=== PATIENT | male | born 1995 | race Caucasian/White ===

== ENCOUNTER 2016-04-01 16:39 | Emergency (ER) | payer SELFPAY | END 2016-04-01 17:26 | disposition left against medical advice (07) | LOC: UCCORT 16:39 | DX: J11.1 Influenza due to unidentified influenza virus with other respiratory manifestations (principal); Z53.21 Procedure and treatment not carried out due to patient leaving prior to being seen by health care provider ==

== ENCOUNTER 2016-04-02 16:58 | Emergency (ER) | payer SELFPAY | END 2016-04-02 18:26 | disposition left against medical advice (07) | LOC: UCCORT 16:58 | DX: R50.9 Fever, unspecified (principal); J02.9 Acute pharyngitis, unspecified; R05 Cough; Z53.21 Procedure and treatment not carried out due to patient leaving prior to being seen by health care provider ==

== ENCOUNTER 2016-07-05 12:19 | Emergency (ER) | payer OTHER ==
[2016-07-05 13:19] VITALS: BP 143/90
--- NOTE | 2016-07-05 14:34 | UC ---
Throat Pain/Nasal Max HPI - HPI Summary HPI Summary: FIVE DAYS OF YELLOW PRODUCTIVE COUGH NASAL CONGESTION SORE THROAT, NO FEVER. - History of Current Complaint Chief Complaint: UCRespiratory Stated Complaint: CHEST COLD Time Seen by Provider: 07/05/16 14:06 Hx Obtained From: Patient, Family/[employer] Onset/Duration: Gradual Onset, Lasting Days, Still Present Severity: Moderate Pain Intensity: 10 Pain Scale Used: 0-10 Numeric Cough: Productive Associated Signs & Symptoms: Positive: Hoarseness, Sinus Discomfort, Nasal Discharge - Epiglottits Risk Factors Epiglottis Risk Factors: Negative - Allergies/Home Medications Allergies/Adverse Reactions: Allergies Allergy/AdvReac Type Severity Reaction Status Date / Time bee stings Allergy Swelling Uncoded 07/05/16 13:14 Of Face,Lips,& Throat Home Medications: Home Medications Ibuprofen TAB* [Advil TAB*] 400 mg PO Q6H PRN 07/05/16 [History Confirmed ] Vtmucajurmhoi-[id number] [[place] Plus Day/Nig] 1 cy PO BID PRN [History Confirmed 07/05/16] guaiFENesin ER TAB [Mucinex*] 600 mg PO BID PRN 07/05/16 [History Confirmed ] PMH/Surg Hx/FS Hx/Imm Hx Previously Healthy: Yes Endocrine History Of: Denies: Diabetes, Thyroid Disease Cardiovascular History Of: Denies: Cardiac Disorders, Hypertension Respiratory History Of: Denies: COPD, Asthma GI/ History Of: Denies: Ulcer - Surgical History Surgical History: Yes Surgery Procedure, Year, and Place: ear tubes 1998 - Family History Known Family History: Positive: Hypertension - Social History Occupation: Unemployed Lives: With Family Alcohol Use: None Substance Use Type: None Smoking Status (MU): Former Smoker - Immunization History Most Recent Tetanus Shot: 12/11/15 Vaccination Up to Date: Yes Review of Systems Constitutional: Negative Skin: Negative Eyes: Negative ENT: Sore Throat, Nasal Discharge Respiratory: Cough Cardiovascular: Negative Gastrointestinal: Negative Genitourinary: Negative Motor: Negative Neurovascular: Negative Musculoskeletal: Negative Neurological: Negative Psychological: Negative All Other Systems Reviewed And Are Negative: Yes Physical Exam Triage Information Reviewed: Yes Appearance: No Pain Distress, Well-Nourished, Ill-Appearing - MILDLY Vital Signs: Initial Vital Signs Temp 98.8 F 07/05/16 13:16 Pulse 65 07/05/16 13:16 Resp 16 07/05/16 13:16 BP 143/90 07/05/16 13:16 Pulse Ox 99 07/05/16 13:16 Vital Signs Reviewed: Yes Eye Exam: Normal ENT: Positive: Hearing grossly normal, Nasal congestion, TM bulging, TM dull Dental Exam: Normal Neck exam: Normal Neck: Positive: Supple, Nontender, No Lymphadenopathy Respiratory Exam: Normal Respiratory: Positive: Chest non-tender, Lungs clear, Normal breath sounds, No respiratory distress, No accessory muscle use Cardiovascular Exam: Normal Cardiovascular: Positive: RRR, No Murmur, Pulses Normal Abdominal Exam: Normal Abdomen Description: Positive: Nontender, No Organomegaly Musculoskeletal Exam: Normal Musculoskeletal: Positive: Strength Intact, ROM Intact Neurological Exam: Normal Psychological Exam: Normal Psychological: Positive: Normal Response To Family Skin Exam: Normal Throat Pain/Nasal Course/Dx - Differential Dx/Diagnosis Differential Diagnosis/HQI/PQRI: Mononucleosis, Sinusitis, Tonsillitis, URI Provider Diagnoses: SINUSITIS. TONSILLITIS Discharge - Discharge Plan Condition: Stable Disposition: HOME Prescriptions: Amoxicillin/Clavulanate TAB* [Augmentin TAB 875*] 875 mg PO BID #20 tab Benzonatate CAP* [Tessalon 100 MG CAP*] 100 mg PO TID PRN #15 cap PRN Reason: Cough Patient Education Materials: Sinusitis (ED) Referrals: CARL Rankin [Primary Care Provider] -
== END 2016-07-05 14:24 | disposition home or self-care (01) ==
LOC: UCCORT 12:19
DX: J32.9 Chronic sinusitis, unspecified (principal); J03.90 Acute tonsillitis, unspecified; Z91.030 Bee allergy status; Z87.891 Personal history of nicotine dependence
CPT/HCPCS: 99212; G0463

== ENCOUNTER 2019-03-09 15:11 | Emergency (ER) | payer OTHER ==
[2019-03-09 15:44] VITALS: BP 141/68
[2019-03-09 16:28] LABS: Influenza B Molecular POSITIVE (Negative)
--- NOTE | 2019-03-09 16:46 | UC ---
FLU HPI - HPI Summary HPI Summary: Pt presents with c/o cough, chest congestion, fever, chills, body aches, X 5 days. - History of Current Complaint Chief Complaint: UCGeneralIllness Stated Complaint: COUGH, CONGESTION Time Seen by Provider: 03/09/19 15:56 Hx Obtained From: Patient Onset/Duration: Sudden Onset, Lasting Days, Still Present Severity Currently: Moderate Severity Initially: Moderate Pain Intensity: 7 Associated Signs & Symptoms: Positive: Fever, Myalgia, Cough, Nasal Congestion, Headache Related Hx: Possible Flu/Infectious Exposure - Risk Factors Influenza Risk Factors: Negative - Allergy/Home Medications Allergies/Adverse Reactions: Allergies Allergy/AdvReac Type Severity Reaction Status Date / Time bee stings Allergy Swelling Uncoded 03/09/19 15:44 Of Face,Lips,& Throat PMH/Surg Hx/FS Hx/Imm Hx Previously Healthy: Yes - Surgical History Surgical History: Yes Surgery Procedure, Year, and Place: ear tubes 1998 - Family History Known Family History: Positive: Hypertension - Social History Occupation: Employed Part-time Lives: With Family Alcohol Use: None Substance Use Type: None Smoking Status (MU): Former Smoker Have You Smoked in the Last Year: No - Immunization History Most Recent Tetanus Shot: 12/11/15 Vaccination Up to Date: Yes Review of Systems All Other Systems Reviewed And Are Negative: Yes Constitutional: Positive: Fever, Chills, Fatigue Skin: Positive: Negative Eyes: Positive: Negative ENT: Positive: Sinus Congestion Respiratory: Positive: Cough Cardiovascular: Positive: Negative Gastrointestinal: Positive: Negative Genitourinary: Positive: Negative Motor: Positive: Negative Neurovascular: Positive: Negative Musculoskeletal: Positive: Negative Neurological: Positive: Negative Psychological: Positive: Negative Is Patient Immunocompromised?: No Physical Exam Triage Information Reviewed: Yes Appearance: Ill-Appearing Vital Signs: Initial Vital Signs Temp 99.9 F 03/09/19 15:39 Pulse 88 03/09/19 15:39 Resp 16 03/09/19 15:39 BP 141/68 03/09/19 15:39 Pulse Ox 100 03/09/19 15:39 Vital Signs Reviewed: Yes Eye Exam: Normal ENT Exam: Other ENT: Positive: Nasal congestion Dental Exam: Normal Neck exam: Normal Respiratory Exam: Normal Cardiovascular Exam: Normal Musculoskeletal Exam: Normal Neurological Exam: Normal Psychological Exam: Normal Skin Exam: Normal Flu Course/Dx - Differential Dx/Diagnosis Differential Diagnosis/HQI/PQRI: Influenza, Upper Respiratory Infection Provider Diagnosis: Influenza B Discharge ED - Sign-Out/Discharge Documenting (check all that apply): Patient Departure All imaging exams completed and their final reports reviewed: No Studies - Discharge Plan Condition: Stable Disposition: HOME Prescriptions: Oseltamivir CAP* [Tamiflu CAP*] 75 mg PO Q12H #10 cap Patient Education Materials: Influenza (ED) Forms: *Work Release Referrals: [facility] [Outside] - If Needed No Primary Care Phys,NOPCP [Primary Care Provider] - - Billing Disposition and Condition Condition: STABLE Disposition: Home - Attestation Statements Provider Attestation: This patient was not seen by me I was available for consult Chart reviewed sirisha
== END 2019-03-09 16:46 | disposition home or self-care (01) ==
LOC: UCCORT 15:11
DX: J10.1 Influenza due to other identified influenza virus with other respiratory manifestations (principal); Z91.030 Bee allergy status; Z87.891 Personal history of nicotine dependence
CPT/HCPCS: 99212; G0463